=== PATIENT | female | born 1945 | race Caucasian/White ===

== ENCOUNTER 2023-04-04 09:26 | Outpatient (CLI) | payer MEDICARE, MEDICAID ==
[~2023-04-04] VITALS: Ht 157.5 cm; Wt 63.0 kg
[2023-04-04 10:19] VITALS: PULSE 67; RESP 18; O2SAT 97
[2023-04-04] MEDS ORDERED: albuterol 2.5 MG/3 ML nebule NEB ONE (10:20)
== END 2023-04-04 23:59 | disposition home or self-care (01) ==
LOC: RT 09:26
PROVIDERS: ATTEND Physician Assistant
DX: R94.31 Abnormal electrocardiogram [ECG] [EKG] (principal); I50.9 Heart failure, unspecified; J44.9 Chronic obstructive pulmonary disease, unspecified
CPT/HCPCS: 94060; 94760